=== PATIENT | male | born 1995 | race Caucasian/White ===

== ENCOUNTER 2021-01-10 19:31 | Emergency (ER) | payer MEDICAID, SELFPAY ==
[2021-01-10 19:33] VITALS: BP 107/72; PULSE 117; RESP 10; TEMP 36.8; O2SAT 100; BMI 18.8
--- NOTE | 2021-01-10 20:00 | CT_ITS ---
STUDY: CT BRAIN WITHOUT CONTRAST REASON FOR EXAM: Male, 25 years old. ms change RADIATION DOSAGE (If Supplied By Facility): CTDIvol = ( 44.99 ) mGy, DLP = ( 779.24 ) mGycm TECHNIQUE: Transaxial CT imaging of the brain was performed without administration of intravenous contrast material. Individualized dose optimization techniques were used for this CT. COMPARISON: No relevant priors. FINDINGS: Normal soft tissue structures. Normal calvarium. Normal size ventricles and extra-axial spaces for the patient''s age. Normal white matter tracts of the cerebral hemispheres. Normal basal ganglia and thalami. Normal brainstem. Normal cerebellum. There is no intracranial hemorrhage. There are no findings of an acute ischemic infarction. Normal visualized paranasal sinuses. CT/Brain/Head without Contrast IMPRESSION: Normal unenhanced CT scan of the brain. Electronically Signed: Varun Guan MD at 20:34 EDT , Service support ,
--- NOTE | 2021-01-10 20:03 | EKG12_ITS ---
Test Reason : DYSRHYTHMIA Blood Pressure : / mmHG Vent. Rate : 107 BPM Atrial Rate : 107 BPM P-R Int : 130 ms QRS Dur : 094 ms QT Int : 354 ms P-R-T Axes : 078 055 070 degrees QTc Int : 472 ms Sinus tachycardia Otherwise normal ECG Confirmed by TWYLA TRISTAN, EVELYN ([id number]), script editor JUAN MATTHEW ([id number]) on 01/12/2021 10:19:48 AM Referred By: SVITLANA Confirmed By:EVELYN WAKEFIELD MD
[2021-01-10] MEDS: 0.9% Normal Saline 1,000 ML 1000 ML IV (20:09)
[2021-01-10 20:13] LABS: Absolute Lymphocyte Count 4.28 X10^3/uL (0.83-4.51); Absolute Neutrophil Count 4.1 X10^3/uL (2.0-7.7); Basophil# 0.04 X10^3/uL; Basophil% 0.4 % (0-1); Eosinophil# 0.13 X10^3/uL; Eosinophils% 1.4 % (0-5); Hematocrit 45.7 % (40-54); Hemoglobin 15.5 g/dL (13.0-16.5); Lymphocyte # 4.28 X10^3/ul (0.83-4.51); Lymphocyte % 46.1 % (19-41); Mean Corp Hgb Conc 33.9 g/dL (32-36); Mean Corpuscular Hgb 30.3 pg (27.0-32.0); Mean Corpuscular Volume 89.3 fL (80-94); Monocyte# 0.71 X10^3/uL; Monocyte% 7.7 % (0-10); NRBC Flagged by Analyzer 0 % (0-5); Neutrophil # 4.11 X10^3/uL (2.7-7.7); Neutrophil % 44.3 % (47-70); Platelet Count 304 K/mm3 (150-450); RBC Distribution Width CV 11.9 % (11.6-14.6); RBC Distribution Width SD 39.3 fl (35.1-43.9); Red Blood Count 5.12 M/mm3 (4.6-6.2); White Blood Count 9.3 K/mm3 (4.4-11.0)
--- NOTE | 2021-01-10 20:15 | RAD_ITS ---
STUDY: X-RAY CHEST REASON FOR EXAM: Male, 25 years old. Overdose TECHNIQUE: Single AP portable view of the chest. COMPARISON: None. FINDINGS: The lungs are clear and expanded. There is no demonstrated pleural abnormality. Normal size heart. Normal mediastinum and marie. Normal visualized pulmonary arteries. Normal visualized aortic arch and descending thoracic aorta. Normal visualized thoracic spine. Normal visualized ribs, clavicles, and shoulders. There is no demonstrated abnormality of the visualized soft tissue structures of the upper abdomen. RAD/Chest 1 View (Portable) IMPRESSION: Normal x-ray examination of the chest. Electronically Signed: Varun Guan MD at 20:35 EDT , Service support ,
[2021-01-10 20:23] LABS: ALB/GLOB Ratio 1.3 RATIO (0.9-2.4); AST(SGOT) 12 U/L (15-37); Alanine Aminotransfer ALT/SGPT 19 U/L (16-61); Albumin, Serum 4.2 g/dL (3.2-5.0); Alkaline Phosphatase 151 U/L (45-117); Anion Gap 10 (5-15); BUN 5 mg/dL (7-18); BUN/Creat Ratio 4.7 RATIO (10-20); Calcium,Total 8.4 mg/dL (8.5-10.1); Chloride 107 mmol/L (98-107); Creatinine, Serum 1.06 mg/dL (0.70-1.30); EST Glomerular Filtration Rate 89 mL/min (>60); Est Glom Filt Rate - Afr Amer 108 mL/min (>60); Estimated Creatinine Clearance 102.32 ml/min; Globulin 3.3 g/dL (2.2-4.2); Glucose 131 mg/dL (74-106); Protein, Total 7.5 g/dL (6.4-8.2); Sodium Level 143 mmol/L (136-145)
--- NOTE | 2021-01-10 20:37 | EDS_ITS ---
HPI History of Present Illness Chief Complaint: Overdose Informant: patient and EMS Onset/Context/Timing Onset: Today Context: Sudden Onset Timing: Continuous Current Severity: Moderate Maximum Severity: Severe Associated Symptoms Associated Symptoms: Positive for change in mental status; Negative for vomiting*, diarrhea* and fever* Narrative Narrative: 25-year-old male history of substance abuse. Since today snorted f entanyl. He reportedly was in a car when this happened. The person with him called police and paramedics. On their arrival patient was in distress he was given Narcan and started coming to. He denies any falls or trauma. Patient was initially very confused. Initially on his arrival he was very weak in the upper and lower extremities. That seems to be improving but is still abnormal. He denies any complaints himself. Prior similar symptoms: Yes Recent Illness/Hospitalization: No PFSH PFSH Medical History ADHD Substance abuse Allergy/AdvReac Type Severity Reaction Status Date / Time amoxicillin Allergy Rash Verified 01/10/21 19:40 Social History Smoking Status: Former smoker ROS ROS ED ROS Narrative Patient denies any recent illness illness. Denies any fever, headache, chest pain, abdominal pain he denies any nausea, vomiting or diarrhea. Review of Systems ROS Unobtainable: Denies due to encephalopathy Constitutional Constitutional ED: Denies chills or fever(s) Eyes Eyes: Denies change in vision ENT ENT ED: Denies ear pain or sore throat Cardiovascular Cardiovascular: Denies chest pain or palpitations Respiratory/Chest Respiratory/Chest: Denies cough or dyspnea Gastrointestinal Gastrointestinal: Denies abdominal pain, diarrhea, nausea or vomiting Genitourinary Genitourinary ED: Denies dysuria Musculoskeletal Musculoskeletal: Denies myalgias Integumentary Denies rash Neurologic Neurologic: Reports weakness; Denies headache(s) Psychiatric Psychiatric: Denies depression Endocrine Endocrinology: Denies polyuria Hematologic/Lymphatic Hematologic/Lymphatic: Denies easy bruising Allergic/Immunologic Allergic/Immunologic ED: Denies urticaria EXAM Physical Exam Narrative Exam Narrative: Young male with recent overdose treated with Narcan. Vital signs are stable he is afebrile. His pulse ox 1%. He is tachycardic. HEENT exam he appears pale. No trauma. Neck nontender. Trachea midline. No lymp hadenopathy. Lungs clear to auscultation bilateral. Heart tachycardic no murmur rate about 115. Chest were nontender. Abdomen soft nontender normal bowel sounds no peritoneal signs. Extremities he has weakness in both upper and lower extremities. And loss of dexterity this is bilaterally. Neurologically is awake. He does answer questions and follow limited commands. He has obvious weakness to both upper and lower extremities and loss of dexterity. Const Vital Signs: 01/10/21 19:33 01/10/21 19:42 01/10/21 20:56 Temperature 98.2 F Temperature Source Temporal Pulse Rate 117 H 96 Respiratory Rate 10 L 16 Respiratory Effort Normal Non-Labored Respiratory Pattern Normal Blood Pressure 107/72 95/60 Blood Pressure Mean 83 71 Pulse Ox 100 98 Oxygen Delivery Method Room Air Room Air 01/10/21 21:00 Temperature Temperature Source Pulse Rate 98 Respiratory Rate 18 Respiratory Effort Respiratory Pattern Blood Pressure 97/61 Blood Pressure Mean 73 Pulse Ox 98 Oxygen Delivery Method Room Air Positive well nourished and well developed; Negative for obese or cachectic General Appearance ED: well developed; Negative for cachectic Nutritional Appearance: Negative for cachectic or obese HEENT Reports moist mucous membranes atraumatic; Negative for trauma or tenderness Eyes PERRL and EOMs intact bilaterally General Eye ED: Yes pale conjunctiva Neck no lymphadenopathy, supple and no JVD Thyroid: Negative for tender Lymph Lymphatic: no lymphadenopathy noted Chest Wall inspection of chest normal and palpation of chest normal Resp normal respiratory effort and clear to auscultation bilaterally Auscultation: Negative for rales, rhonchi or wheezes Cardio regular rhythm and no murmurs Rate: tachycardic GI soft to palpation, non-tender, non-distended and no masses Inspection: Negative for abdominal distention Palpation: Negative for tender, guarding or rigid Back/Spine no CVA tenderness Extremity Extremity Narrative: Bilateral upper and lower extremity weakness and loss of dexterity General Extremety ED: Negative for edema or tenderness General Extremity: Negative for edema Neuro Sensorium / Orientation: alert, oriented to person, oriented to place, confused and lethargic Motor Exam: general weakness and strength abnormal Psych Mood & Affect: depressed Skin Lesions: no lesions Rashes: no rashes MDM MDM MDM Narrative Medical decision making narrative: 25-year-old male history of drug abuse. Reportedly today snorted fentanyl and was hypoxic. Squad had to get treat him with Narcan. On arrival he has generalized weakness in both upper and lower extremities., Undergo evaluation. Including CAT scan and labs. Concern for possible hypoxic brain injury. Repeat exam patient doing well at 9:40 PM. He is awake alert. His neurologic exam is completely normal at this time. He has good motor strength in both upp er and lower extremities. Normal dexterity. 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 Dorsi plantar flexion intact. Fingertip to nose within normal limits. Repeat exam patient is much more awake alert is currently doing well. He is comfortable being discharged home. Lab Data Lab results narrative: CBC normal. White count 9 hemoglobin 15. Electrolytes unremarkable potassium 3.0. Normal gap normal creatinine. Liver enzymes unremarkable. Glucose 131. Chest x-ray and CAT scan of his brain unremarkable. Labs: Laboratory Results - last 24 hr 01/10/21 01/10/21 01/10/21 19:40 19:40 20:51 WBC 9.3 RBC 5.12 Hgb 15.5 Hct 45.7 MCV 89.3 MCH 30.3 MCHC 33.9 RDW Std Deviation 39.3 RDW Coeff of Dilcia 11.9 Plt Count 304 MPV 10.0 Immature Gran % (Auto) 0.100 Neut % (Auto) 44.3 L Lymph % (Auto) 46.1 H [place] % (Auto) 7.7 Eos % (Auto) 1.4 Baso % (Auto) 0.4 Absolute Neuts (auto) 4.1 Absolute Lymphs (auto) 4.28 Nucleated RBC % 0 Sodium 143 Potassium 3.0 L Chloride 107 Carbon Dioxide 26.0 Anion Gap 10 BUN 5 L Creatinine 1.06 Estim Creat Clear Calc 102.32 Est GFR (MDRD) Af Amer 108 Est GFR (MDRD) Non-Af 89 BUN/Creatinine Ratio 4.7 L Glucose 131 H Calcium 8.4 L Total Bilirubin 0.50 AST 12 L ALT 19 Alkaline Phosphatase 151 H Total Protein 7.5 Albumin 4.2 Globulin 3.3 Albumin/Globulin Ratio 1.3 POC Glucose 94 Radiography Diagnostic Testing: Radiology Impression Brain CT 01/10/21 20:00 IMPRESSION: Normal unenhanced CT scan of the brain. Electronically Signed: Varun Guan MD at 20:34 EDT , Service support , Chest X-Ray 01/10/21 20:15 IMPRESSION: Normal x-ray examination of the chest. Electronically Signed: Varun Guan MD at 20:35 EDT , Service support , Chest x-ray portable 1 view interpreted by myself and radiologist shows no acute abnormality. CAT scan of brain read by the radiologist and reviewed by me no acute abnormality. Discharge Plan Triage Chief Complaint: Overdose ED Provider: Tejas Frost Dx/Rx/DC Orders Clinical Impression: Accidental fentanyl overdose Instructions: ED Drug Abuse, ED Overdose, Opiate Primary Care Provider: Care Physician,No Primary Referrals: George Odonnell MD [NON-STAFF] - As Needed Care Physician,No Primary [Primary Care Provider] - Activity Restrictions/Additional Instructions: Follow-up with the [facility]. Disposition Disposition: Home, self care
[2021-01-10 20:56] VITALS: BP 95/60; PULSE 96; RESP 16; O2SAT 98
[2021-01-10 21:00] VITALS: BP 97/61; PULSE 98; RESP 18; O2SAT 98
[2021-01-10 21:01] LABS: Bedside Glucose 94 mg/dL (70-110)
[2021-01-10 21:42] VITALS: PULSE 90; RESP 15; O2SAT 95
== END 2021-01-10 21:57 | disposition home or self-care (01) ==
PROVIDERS: Emergency Provider Emergency Medicine
DX: T40.411A Poisoning by fentanyl or fentanyl analogs, accidental (unintentional), initial encounter (principal); Z87.891 Personal history of nicotine dependence
CPT/HCPCS: 70450; 71045; 80053; 82962; 85025; 93005; 99285; A4216

== ENCOUNTER 2022-11-12 10:20 | Emergency (ER) | payer MEDICAID, SELFPAY ==
[2022-11-12 10:21] VITALS: BP 130/89; PULSE 100; RESP 16; TEMP 36.7; O2SAT 97; BMI 23.1
--- NOTE | 2022-11-12 10:46 | CT_ITS ---
INDICATION: RLQ abd pain x2 days EXAMINATION: CT ABDOMEN AND PELVIS WITH CONTRAST - CT Abdomen And Pelvis W/ Contrast Injection TECHNIQUE: Helically acquired images were obtained of the abdomen and pelvis following IV contrast. A radiation dose optimization technique was used for this scan. IV Contrast dosage and agent: Oral contrast: None. COMPARISON: None. FINDINGS: LOWER CHEST: Lung bases are clear. No cardiomegaly or pericardial effusion. LIVER: Homogeneous. No focal mass. GALLBLADDER AND BILIARY TREE: No calcified gallstones. No gallbladder distension or wall edema. No intra- or extrahepatic biliary ductal dilation. PANCREAS: No focal cystic or solid mass. SPLEEN: Normal size without focal cystic or solid mass. ADRENAL GLANDS: No nodules. KIDNEYS AND URETERS: Right hydronephrosis and hydroureter. This extends to the distal right ureter on series 2 image 101 at which site there is an obstructing calculus 0.32 cm in diameter. There is moderate right perinephric inflammatory change. Left kidney normal. Left ureter normal. PERITONEUM: No ascites or free air. No other fluid collection. BOWEL: No evidence of acute appendicitis. No stomach or bowel distension. No focal inflammatory change. LYMPH NODES: No enlarged mesenteric or retroperitoneal lymph nodes. VESSELS: Aorta is non-dilated. URINARY BLADDER: Unremarkable. REPRODUCTIVE ORGANS: No pelvic masses. ABDOMINAL WALL: No discrete abdominal or pelvic wall hernia. BONES: No lytic or blastic abnormality. CT/Abdomen/Pelvis W IV Cont ONLY IMPRESSION: 1.32 cm distal right ureteral calculus which is obstructing. There is moderate right hydronephrosis and hydroureter as well as moderate right perinephric inflammatory change. Electronically Signed: Ja Oseguera MD, AMANUEL at 11:20 EDT ,
[2022-11-12] MEDS: Ondansetron 4 MG/2 ML Vial IV (10:54)
[2022-11-12] MEDS: Ketorolac 15 MG/ML Vial IV (10:54)
[2022-11-12] MEDS: Morphine 4 MG/ML Syringe IV (10:55)
[2022-11-12] MEDS: 0.9% Normal Saline 1,000 ML 1000 ML IV (10:55)
[2022-11-12 11:03] LABS: Absolute Lymphocyte Count 1.07 X10^3/uL (0.83-4.51); Absolute Neutrophil Count 9.3 X10^3/uL (2.0-7.7); Basophil# 0.03 X10^3/uL; Basophil% 0.3 % (0-1); Eosinophil# 0.01 X10^3/uL; Eosinophils% 0.1 % (0-5); Hematocrit 42.5 % (40-54); Hemoglobin 14.7 g/dL (13.0-16.5); Lymphocyte # 1.07 X10^3/ul (0.83-4.51); Lymphocyte % 9.4 % (19-41); Mean Corp Hgb Conc 34.6 g/dL (32-36); Mean Corpuscular Hgb 29.9 pg (27.0-32.0); Mean Corpuscular Volume 86.4 fL (80-94); Mean Platelet Vol. 9.5 fl (6.2-12.0); Monocyte# 0.99 X10^3/uL; Monocyte% 8.7 % (0-10); NRBC Flagged by Analyzer 0 % (0-5); Neutrophil # 9.29 X10^3/uL (2.7-7.7); Neutrophil % 81.2 % (47-70); Platelet Count 224 K/mm3 (150-450); RBC Distribution Width CV 11.5 % (11.6-14.6); RBC Distribution Width SD 36.4 fl (35.1-43.9); Red Blood Count 4.92 M/mm3 (4.6-6.2); White Blood Count 11.4 K/mm3 (4.4-11.0)
--- NOTE | 2022-11-12 11:09 | ED.VIS.GI ---
HPI HPI - GI History of Present Illness Chief Complaint: Abd Pain Informant: patient and parent Narrative Narrative: Patient is a 27-year-old male with history of opioid abuse presenting with right-sided abdominal pain. Patient states it started about 4 days ago but significantly worsened last night. States the pain started in his back but is now more in his abdomen. Radiates to his back. It is more on the right lower quadrant. States it is now constant in nature. He states he could not even sleep well last night and had to lay on his left side even try to find a position of comfort. He had some nausea and vomiting this morning. Denies any fever. Denies any history of any abdominal surgeries. Father has a history of kidney stones. Notes he has been constipated but took some medicine of her constipation earlier in the week and had a large bowel movement and that feels improved. Denies any urinary symptoms including hematuria. No other complaints at this time. PFSH PFS Medical History ADHD Substance abuse Home Medications ibuprofen 600 mg tablet 600 mg PO Q6H PRN PRN pain #20 TABLETS 11/12/22 [Rx Last Taken Unknown] ondansetron 4 mg disintegrating tablet 4 mg PO Q6H PRN nausea and vomiting #14 tabs 11/12/22 [Rx Last Taken Unknown] oxycodone-acetaminophen 5 mg-325 mg tablet (Endocet) 1 tab PO Q6H PRN pain 3 days #12 tabs 11/12/22 [Rx Last Taken Unknown] Allergy/AdvReac Type Severity Reaction Status Date / Time amoxicillin Allergy Rash Verified 11/12/22 10:22 Social History Smoking Status: Former smoker ROS ROS ED Constitutional Constitutional ED: Denies chills or fever(s) Cardiovascular Cardiovascular: Denies chest pain Respiratory/Chest Respiratory/Chest: Denies cough Gastrointestinal Gastrointestinal: Reports abdominal pain, constipation, nausea and vomiting; Denies diarrhea Genitourinary Genitourinary ED: Denies dysuria, hematuria or urinary frequency Musculoskeletal Musculoskeletal: Reports back pain; Denies arthralgias Integumentary Denies rash Neurologic Neurologic: Denies headache(s) or weakness Psychiatric Psychiatric: Denies anxiety EXAM Physical Exam Const Vital Signs: 11/12/22 10:21 11/12/22 12:33 Temperature 98.1 F Temperature Source Temporal Pulse Rate 100 78 Respiratory Rate 16 18 Blood Pressure 130/89 H 127/87 H Blood Pressure Mean 102 100 Pulse Ox 97 98 Oxygen Delivery Method Room Air Room Air Positive well nourished and well developed General Appearance ED: well developed and NAD HEENT Reports moist mucous membranes Eyes PERRL and EOMs intact bilaterally General Eye ED: Negative for scleral icterus Neck supple Resp normal respiratory effort and clear to auscultation bilaterally Cardio regular rhythm Rate: tachycardic GI non-distended GI Narrative: Pain is lateral to McBurney's point Inspection: Negative for abdominal distention Auscultation: hypoactive bowel sounds Palpation: soft and tender RLQ; Negative for guarding, rigid or rebound tenderness present Back/Spine no CVA tenderness Extremity full ROM Neuro Sensorium / Orientation: alert, oriented to person, oriented to place and oriented to time Motor Exam: Negative for general weakness Psych mental status grossly normal and thought process normal MDM MDM MDM Narrative Medical decision making narrative: Patient is evaluated for right-sided abdominal pain with associated nausea and vomiting. Differential includes appendicitis, renal colic as well as colitis. Patient is given pain medication including Zofran, morphine and Toradol as well as IV fluids. He is mildly tachycardic and I will obtain a lactate as well. We will obtain a CT with IV contrast for further evaluation. Patient has good pain control with interventions. He is resting comfortably. CT is consistent with large obstructing right distal ureteral calculus (1.32 cm). No signs of secondary infection as his urinalysis just shows red blood cells with no bacteria and no leukocyte esterase/nitrates. Discussed admission given the size of his stone versus outpatient pain management until he can follow-up this week. [facility] tentatively excepted by Dr. Carrasco, however he states that more than likely patient would not have any type of urologic procedure until Monday. Patient is informed of this and states he rather just be home for the weekend and call urology for outpatient follow-up on Monday. He will return to the ER if he has a progression or worsening of his symptoms. Elbow patient does have a history of opioid dependence he is currently on house arrest and family will help monitor his medication usage to avoid abuse. He will be discharged home with Motrin 600, Zofran and Percocet. Given return precautions. Discharged home in stable condition. Given outpatient urology follow-up. History & Record Review Discussion w/independent historian: Patient and Family Lab Data Attestation: I reviewed the patient's lab results. Labs: Laboratory Results - last 24 hr 11/12/22 11/12/22 11/12/22 10:56 10:56 10:56 WBC 11.4 H RBC 4.92 Hgb 14.7 Hct 42.5 MCV 86.4 MCH 29.9 MCHC 34.6 RDW Std Deviation 36.4 RDW Coeff of Dilcia 11.5 L Plt Count 224 MPV 9.5 Immature Gran % (Auto) 0.300 Neut % (Auto) 81.2 H Lymph % (Auto) 9.4 L [place] % (Auto) 8.7 Eos % (Auto) 0.1 Baso % (Auto) 0.3 Absolute Neuts (auto) 9.3 H Absolute Lymphs (auto) 1.07 Nucleated RBC % 0 Sodium 140 Potassium 3.7 Chloride 106 Carbon Dioxide 27.0 Anion Gap 7 BUN 16 Creatinine 1.30 Estim Creat Clear Calc 100.57 Est GFR (MDRD) Af Amer 84 Est GFR (MDRD) Non-Af 70 BUN/Creatinine Ratio 12.3 Glucose 105 Lactic Acid 1.3 Calcium 8.9 Total Bilirubin 0.50 AST 11 L ALT 16 Alkaline Phosphatase 78 Total Protein 7.4 Albumin 3.9 Globulin 3.5 Albumin/Globulin Ratio 1.1 Urine Color Urine Clarity Urine pH Ur Specific [place] Urine Protein Urine Glucose (UA) Urine Ketones Urine Occult Blood Urine Nitrite Urine Bilirubin Urine Urobilinogen Ur Leukocyte Esterase Urine RBC Urine WBC Ur Squamous Epith Cells Urine Bacteria Urine Mucus 11/12/22 11:13 WBC RBC Hgb Hct MCV MCH MCHC RDW Std Deviation RDW Coeff of Dilcia Plt Count MPV Immature Gran % (Auto) Neut % (Auto) Lymph % (Auto) [place] % (Auto) Eos % (Auto) Baso % (Auto) Absolute Neuts (auto) Absolute Lymphs (auto) Nucleated RBC % Sodium Potassium Chloride Carbon Dioxide Anion Gap BUN Creatinine Estim Creat Clear Calc Est GFR (MDRD) Af Amer Est GFR (MDRD) Non-Af BUN/Creatinine Ratio Glucose Lactic Acid Calcium Total Bilirubin AST ALT Alkaline Phosphatase Total Protein Albumin Globulin Albumin/Globulin Ratio Urine Color Yellow Urine Clarity Clear Urine pH 6.0 Ur Specific [place] 1.010 Urine Protein 15 H Urine Glucose (UA) Normal Urine Ketones Negative Urine Occult Blood 250 H Urine Nitrite Negative Urine Bilirubin Negative Urine Urobilinogen Normal Ur Leukocyte Esterase Negative Urine RBC > 100 SEEN Urine WBC 0-5 SEEN Ur Squamous Epith Cells 0 SEEN Urine Bacteria 0 SEEN Urine Mucus 0 SEEN Radiography Diagnostic Testing: Clinical Impression(s) from Imaging Studies Abdomen/Pelvis CT 11/12/22 10:46 IMPRESSION: 1.32 cm distal right ureteral calculus which is obstructing. There is moderate right hydronephrosis and hydroureter as well as moderate right perinephric inflammatory change. Electronically Signed: Ja Oseguera MD, AMANUEL at 11:20 EDT , Discharge Plan Triage Chief Complaint: Abd Pain ED Provider: Reina aMrie Dx/Rx/DC Orders Clinical Impression: Right ureteral stone, Hydronephrosis of right kidney Instructions: ED Kidney Stone w/ Colic Prescriptions: New oxycodone-acetaminophen [Endocet] 5-325 mg tablet 1 tab PO Q6H PRN (Reason: pain) 3 Days Qty: 12 0RF ibuprofen 600 mg tablet 600 mg PO Q6H PRN PRN (Reason: pain) Qty: 20 0RF ondansetron 4 mg tablet,disintegrating 4 mg PO Q6H PRN (Reason: nausea and vomiting) Qty: 14 0RF Primary Care Provider: Ja Trejo Referrals: Mark Patrick MD [Med Staff - Active Staff] - As soon as possible (call monday to be seen [facility]) Ja Trejo MD [Primary Care Provider] - Activity Restrictions/Additional Instructions: Please follow-up with urology as soon as possible. Call the office on Monday to arrange outpatient follow-up. Drink lots of fluids. If you have progression or worsening your symptoms or cannot obtain adequate pain control please return to the emergency room. Your stone is 1.32 cm and likely will require a procedure to have it removed Disposition Disposition: Home, Self Care Discharge Date/Time: 11/12/22 14:04
[2022-11-12 11:19] LABS: Bacteria 0 SEEN /hpf (None Seen); Mucous, Urine 0 SEEN /hpf (<or=2+); Squamous Epithelial Cells - UA 0 SEEN /hpf (0-5)
[2022-11-12 11:23] LABS: ALB/GLOB Ratio 1.1 RATIO (0.9-2.4); AST(SGOT) 11 U/L (15-37); Alanine Aminotransfer ALT/SGPT 16 U/L (16-61); Albumin, Serum 3.9 g/dL (3.2-5.0); Alkaline Phosphatase 78 U/L (45-117); Anion Gap 7 (5-15); BUN 16 mg/dL (7-18); BUN/Creat Ratio 12.3 RATIO (10-20); Calcium,Total 8.9 mg/dL (8.5-10.1); Chloride 106 mmol/L (98-107); EST Glomerular Filtration Rate 70 mL/min (>60); Est Glom Filt Rate - Afr Amer 84 mL/min (>60); Estimated Creatinine Clearance 100.57 ml/min; Globulin 3.5 g/dL (2.2-4.2); Glucose 105 mg/dL (74-106); Potassium 3.7 mmol/L (3.5-5.1); Protein, Total 7.4 g/dL (6.4-8.2); Sodium Level 140 mmol/L (136-145)
[2022-11-12 11:35] LABS: Lactic Acid 1.3 mmol/L (0.4-1.9)
[2022-11-12 11:40] LABS: Color, Urine Yellow (Yellow); Glucose, Dipstick Normal (Normal); Ketone-Dipstick Negative (Negative); Leukocyte Esterase-Dipstick Negative /ul (Negative); Nitrite-Dipstick Negative (Negative); Occult Blood-Urine 250 /ul (Negative); Protein-Dipstick 15 mg/dl (Negative); Urine Bilirubin Dipstick Negative (Negative); Urine Clarity Clear (Clear); Urine Urobilinogen Normal (Normal)
[2022-11-12 11:51] LABS: Red Blood Cells-Urine > 100 SEEN /hpf (0-5); White Blood Cells 0-5 SEEN /hpf (0-5)
[2022-11-12 12:33] VITALS: BP 127/87; PULSE 78; RESP 18; O2SAT 98
== END 2022-11-12 14:04 | disposition home or self-care (01) ==
PROVIDERS: Emergency Provider Emergency Medicine; PCP Family Medicine; Referring Provider Emergency Medicine; Visit Provider Emergency Medicine
DX: N13.2 Hydronephrosis with renal and ureteral calculous obstruction (principal); Z87.891 Personal history of nicotine dependence
CPT/HCPCS: 74177; 80053; 81001; 83605; 85025; 96361; 96374; 96375; 99283; Q9967; J2405

== ENCOUNTER 2022-12-11 23:52 | Emergency (ER) | payer MEDICAID, SELFPAY ==
[2022-12-11 23:53] VITALS: BP 148/98; PULSE 82; RESP 16; TEMP 37.2; O2SAT 98; BMI 23.0
--- NOTE | 2022-12-12 00:11 | CT_ITS ---
EXAM: CT ABDOMEN AND PELVIS WITHOUT INTRAVENOUS CONTRAST CLINICAL INDICATION: Kidney Stone TECHNIQUE: Helically acquired images were obtained of the abdomen and pelvis without intravenous contrast. CTDIvol = ( 6.59 ) mGy, DLP = ( 344.02 ) mGycm This CT exam was performed using one or more of the following dose reduction techniques: automated exposure control, adjustment of the mA and/or kV according to patient size, and/or use of iterative reconstruction technique. COMPARISON: November 12, 2022 FINDINGS: LOWER THORAX: Lung bases remain clear. No cardiomegaly. No significant pericardial effusion. ABDOMEN: LIVER: Unremarkable. Homogeneous. GALLBLADDER AND BILE DUCTS: Unremarkable. No calcified gallstones. No gallbladder distention or wall edema. No intra- or extrahepatic biliary ductal dilation. PANCREAS: Unremarkable. No focal cystic mass. SPLEEN: Unremarkable. Normal size without focal cystic or solid mass. ADRENALS: Unremarkable. No nodules. KIDNEYS AND URETERS: Mild interval migration of the right distal ureter stone which measures 5 mm. It is now located at the UVJ. There is persisting mild to moderate upstream dilatation of the collecting system with mild renal enlargement and mild perinephric stranding. While these findings are likely postobstructive, would correlate clinically to exclude any superimposed infection. Normal renal size and position. STOMACH AND BOWEL: Remaining hollow viscus and solid organ structures are unremarkable. No stomach or bowel distention. No focal inflammatory change. PELVIS: APPENDIX: No evidence of acute appendicitis. BLADDER: Unremarkable. REPRODUCTIVE: Unremarkable as visualized. No mass. ABDOMEN and PELVIS: INTRAPERITONEAL SPACE: Unremarkable. No free air or free fluid. 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 No suspicious lytic or sclerotic lesions of bone. SOFT TISSUES: Unremarkable. No discrete abdominal or pelvic wall hernia. VASCULATURE: Unremarkable. Abdominal aorta is non-dilated. LYMPH NODES: Unremarkable. No enlarged lymph nodes. CT/Abdomen/Pelvis without Cont IMPRESSION: Mild interval migration of the right distal ureter stone which measures 5 mm. It is now located at the UVJ. There is persisting mild to moderate upstream dilatation of the collecting system with with mild renal enlargement and mild perinephric stranding. While these findings are likely postobstructive, would correlate clinically to exclude any superimposed infection. Electronically Signed: Alek Bradley MD at 0:55 EDT Reading Location ID and State: [facility]– [place][note 2[place] / [place] Tel , Service support ,
--- NOTE | 2022-12-12 00:11 | EX.ED.GUMALE ---
HPI History of Present Illness Chief Complaint: Flank Pain Informant: patient and family Narrative Narrative: Here with father for evaluation worsening kidney stone pain currently in his groin. Seen a month ago in the ED for kidney stones. States had a large stone however was able to go home. He follow-up with urologist in [place] due to stating referral here to Dr. Patrick, outpatient did not take his insurance. He seen a few days later and saw Dr. Mohamud Macedo, was told the stone could not have been that big therefore started on Flomax for which he is taken daily. Pain went away return transient last week however this evening worsening pain causing vomiting. States worse than his initial diagnosis. No fevers. He states decreased urine output. Review of records November 12, discrepancy in CT read from radiology report in the body noting 0.32 cm have impressions noted 1.3 cm. there was plan transfer to [facility] due to no urology coverage at that time. However facility reported likely no interventions over the weekend therefore decision was made with the patient to go home with outpatient follow-up. Patient states he was in the urology office, was told kidney stone not likely 1.3 cm and treated with Flomax. His next appointment is not until January. Prior similar symptoms: Yes PFSH PFSH Medical History ADHD Substance abuse Home Medications cefuroxime axetil 500 mg tablet 500 mg PO BID #14 tabs 12/12/22 [Rx Last Taken Unknown] oxycodone-acetaminophen 5 mg-325 mg tablet (Percocet) 1 tab PO Q6H PRN pain 3 days #12 tabs 12/12/22 [Rx Last Taken Unknown] tamsulosin 0.4 mg capsule 0.4 mg PO DAILY 12/12/22 [History Last Taken Unknown] Allergy/AdvReac Type Severity Reaction Status Date / Time amoxicillin Allergy Rash Verified 12/11/22 23:57 Social History Smoking Status: Former smoker ROS ROS ED Constitutional Constitutional ED: Denies chills, fever(s) or sweats Eyes Eyes: Denies change in vision ENT ENT ED: Denies dysphagia or sore throat Cardiovascular Cardiovascular: Denies chest pain, leg edema, palpitations or racing heartbeat Respiratory/Chest Respiratory/Chest: Denies cough, dyspnea or dyspnea on exertion Gastrointestinal Gastrointestinal: Denies abdominal pain, diarrhea, nausea or vomiting Genitourinary Genitourinary ED: Reports other Details: Decreased urine output, urine discomfort ; Denies dysuria, hematuria or urinary frequency Musculoskeletal Musculoskeletal: Denies back pain, extremity pain or neck pain Integumentary Denies rash or wounds Neurologic Neurologic: Denies headache(s), paresthesias or weakness EXAM Physical Exam Const Vital Signs: 12/11/22 23:53 12/12/22 03:10 Temperature 99.0 F Temperature Source Oral Pulse Rate 82 80 Respiratory Rate 16 16 Blood Pressure 148/98 H Blood Pressure Mean 114 Pulse Ox 98 98 Positive well nourished and well developed Constitutional Narrative: Nontoxic General Appearance ED: well developed and NAD HEENT Reports moist mucous membranes normocephalic and atraumatic Eyes PERRL, EOMs intact bilaterally and conjunctivae normal General Eye ED: Yes normal appearance of both eyes Neck no lymphadenopathy and supple General: Negative for tenderness Chest Wall Chest: Negative for tenderness Resp normal respiratory effort and normal air movement Effort and Inspection: symmetric chest movement; Negative for respiratory distress Cardio regular rate, regular rhythm and no murmurs Peripheral Pulses: pulses 2+ throughout GI normal to inspection, nondistended, normoactive bowel sounds and non-tender Palpation: Negative for guarding or rebound tenderness present no CVA tenderness Back/Spine no CVA tenderness and no thoracic nor lumbar tenderness Extremity normal to inspection General Extremety ED: Negative for edema or tenderness General Extremity: Negative for edema Neuro oriented x3 and no sensory deficits noted Sensorium / Orientation: awake and alert Skin no rashes or lesions noted and no wounds MDM MDM MDM Narrative Medical decision making narrative: Interventions / MDM: Differential diagnosis: Urolithiasis, UTI Diagnosis considered but do not suspect: N/A My EKG interpretation: N/A Imaging independently reviewed and interpreted by myself: CT abdomen pelvis: 5 mm UVJ stone on the right with hydro-. External documents reviewed: Reviewed previous CT from a month ago this ureteral stone measured my cell proximal and 4.7 mm Test considered but not ordered:N/A ED course: Patient presenting recurrent pain nausea and vomiting. Reports pain with urination. Renal stone protocol was treated with Zofran and morphine. Fluids started. Labs stable creatinine 1.33 today up from 1.30 a month ago. White count 7.7. Urine did look at it and 1+ bacteria. Urine culture sent. He is covered with Rocephin. CT scan confirms now UVJ stone of 5 mm. Require additional morphine for symptom control. I did reach out discussed with urologist, Dr. Patrick [id number], discussed patient's previous evaluation and current findings along with difficulty seeing him as an outpatient in the office. Discussed findings of UTI with obstructing stone. He recommended pain control antibiotics and follow-up with his urologist Dr. Macedo as he is established as outpatient. Strict return precautions discussed. Prescription for oxycodone and cefuroxime written. He has Zofran at home. Will avoid NSAIDs due to slight bump in creatinine. All questions were answered. Re-evaluation: stable Disposition discussed with patient/family/significant other: Patient and father Case discussed with consulting clinician: Urologist, Dr. Patrick. Lab Data Attestation: I reviewed the patient's lab results. Labs: Laboratory Results - last 24 hr 12/12/22 12/12/22 12/12/22 00:15 00:15 00:15 WBC 7.7 RBC 5.16 Hgb 15.1 Hct 45.2 MCV 87.6 MCH 29.3 MCHC 33.4 RDW Std Deviation 37.6 RDW Coeff of Dilcia 11.7 Plt Count 240 MPV 9.7 Immature Gran % (Auto) 0.300 Neut % (Auto) 67.5 Lymph % (Auto) 21.3 [place] % (Auto) 10.1 H Eos % (Auto) 0.4 Baso % (Auto) 0.4 Absolute Neuts (auto) 5.2 Absolute Lymphs (auto) 1.64 Nucleated RBC % 0 Sodium 141 Potassium 3.7 Chloride 108 H Carbon Dioxide 27.0 Anion Gap 6 BUN 15 Creatinine 1.33 H Estim Creat Clear Calc 97.66 Est GFR (MDRD) Af Amer 82 Est GFR (MDRD) Non-Af 68 BUN/Creatinine Ratio 11.3 Glucose 113 H Calcium 9.0 Urine Color Yellow Urine Clarity Clear Urine pH 7.0 Ur Specific [place] 1.015 Urine Protein 30 H Urine Glucose (UA) Normal Urine Ketones 5 H Urine Occult Blood 10 H Urine Nitrite Negative Urine Bilirubin Negative Urine Urobilinogen 1 H Ur Leukocyte Esterase 25 H Urine RBC 0 SEEN Urine WBC 0-5 SEEN Ur Squamous Epith Cells 0 SEEN Urine Bacteria 1+ Urine Mucus 2+ Radiography Diagnostic Testing: Clinical Impression(s) from Imaging Studies Abdomen/Pelvis CT 12/12/22 00:11 IMPRESSION: Mild interval migration of the right distal ureter stone which measures 5 mm. It is now located at the UVJ. There is persisting mild to moderate upstream dilatation of the collecting system with with mild renal enlargement and mild perinephric stranding. While these findings are likely postobstructive, would correlate clinically to exclude any superimposed infection. Electronically Signed: Alek Bradley MD at 0:55 EDT , Discharge Plan Triage Chief Complaint: Flank Pain ED Provider: Thang Gudino Dx/Rx/DC Orders Clinical Impression: Urolithiasis, Kidney stone on right side, Acute UTI Instructions: Urinary Tract Infections in Men, ED Kidney Stone w/ Colic Prescriptions: New oxycodone-acetaminophen [Percocet] 5-325 mg tablet 1 tab PO Q6H PRN (Reason: pain) 3 Days Qty: 12 0RF cefuroxime axetil 500 mg tablet 500 mg PO BID Qty: 14 0RF No Action tamsulosin 0.4 mg capsule 0.4 mg PO DAILY Label Comments: take 1 capsule by mouth once daily Primary Care Provider: Ja Trejo Referrals: Ja Trejo MD [Primary Care Provider] - 3-5 Days Activity Restrictions/Additional Instructions: 5 mm right UVJ stone with hydro-. Urine with slight infection. Creatinine 1.33. White count 7.7. Continue your Flomax take pain medicines as needed. Take and finish your antibiotics. Call and follow-up with Dr. Macedo urology for outpatient evaluation. Return if worsening symptoms. Disposition Disposition: Home, Self Care Discharge Date/Time: 12/12/22 03:11
[2022-12-12 00:21] LABS: Red Blood Cells-Urine 0 SEEN /hpf (0-5); Squamous Epithelial Cells - UA 0 SEEN /hpf (0-5)
[2022-12-12] MEDS: Morphine 4 MG/ML Syringe IV ×2 (00:21→01:36)
[2022-12-12] MEDS: Ondansetron 4 MG/2 ML Vial IV (00:21)
[2022-12-12 00:22] LABS: Absolute Lymphocyte Count 1.64 X10^3/uL (0.83-4.51); Absolute Neutrophil Count 5.2 X10^3/uL (2.0-7.7); Basophil# 0.03 X10^3/uL; Basophil% 0.4 % (0-1); Eosinophil# 0.03 X10^3/uL; Eosinophils% 0.4 % (0-5); Hematocrit 45.2 % (40-54); Hemoglobin 15.1 g/dL (13.0-16.5); Lymphocyte # 1.64 X10^3/ul (0.83-4.51); Lymphocyte % 21.3 % (19-41); Mean Corp Hgb Conc 33.4 g/dL (32-36); Mean Corpuscular Hgb 29.3 pg (27.0-32.0); Mean Corpuscular Volume 87.6 fL (80-94); Mean Platelet Vol. 9.7 fl (6.2-12.0); Monocyte# 0.78 X10^3/uL; Monocyte% 10.1 % (0-10); NRBC Flagged by Analyzer 0 % (0-5); Neutrophil % 67.5 % (47-70); Platelet Count 240 K/mm3 (150-450); RBC Distribution Width CV 11.7 % (11.6-14.6); RBC Distribution Width SD 37.6 fl (35.1-43.9); Red Blood Count 5.16 M/mm3 (4.6-6.2); White Blood Count 7.7 K/mm3 (4.4-11.0)
[2022-12-12] MEDS: 0.9% Normal Saline 1,000 ML 250 ML IV (00:23)
[2022-12-12 00:24] LABS: Color, Urine Yellow (Yellow); Glucose, Dipstick Normal (Normal); Ketone-Dipstick 5 mg/dl (Negative); Leukocyte Esterase-Dipstick 25 /ul (Negative); Nitrite-Dipstick Negative (Negative); Occult Blood-Urine 10 /ul (Negative); Protein-Dipstick 30 mg/dl (Negative); Specific Gravity, Urine 1.015 (1.002-1.030); Urine Bilirubin Dipstick Negative (Negative); Urine Clarity Clear (Clear); Urine Urobilinogen 1 mg/dl (Normal)
[2022-12-12 00:39] LABS: Bacteria 1+ /hpf (None Seen); Mucous, Urine 2+ /hpf (<or=2+); White Blood Cells 0-5 SEEN /hpf (0-5)
[2022-12-12 00:43] LABS: Anion Gap 6 (5-15); BUN 15 mg/dL (7-18); BUN/Creat Ratio 11.3 RATIO (10-20); Chloride 108 mmol/L (98-107); Creatinine, Serum 1.33 mg/dL (0.70-1.30); EST Glomerular Filtration Rate 68 mL/min (>60); Est Glom Filt Rate - Afr Amer 82 mL/min (>60); Estimated Creatinine Clearance 97.66 ml/min; Glucose 113 mg/dL (74-106); Potassium 3.7 mmol/L (3.5-5.1); Sodium Level 141 mmol/L (136-145)
[2022-12-12] MEDS: Ceftriaxone 1 GM/50 ML BAG IV (01:41)
[2022-12-12] MEDS: oxyCODONE 5 MG Tablet PO (03:05)
[2022-12-12 03:10] VITALS: PULSE 80; RESP 16; O2SAT 98
== END 2022-12-12 03:11 | disposition home or self-care (01) ==
PROVIDERS: Emergency Provider Emergency Medicine; PCP Family Medicine; Visit Provider Emergency Medicine
DX: N39.0 Urinary tract infection, site not specified (principal); N20.2 Calculus of kidney with calculus of ureter; Z87.891 Personal history of nicotine dependence; Z79.899 Other long term (current) drug therapy
CPT/HCPCS: 74176; 80048; 81001; 85025; 87086; 87088; 96365; 96375; 96376; 99284; J7030; A4216; J2405